=== PATIENT | male | born 1940 | race African-American/Black ===

== ENCOUNTER → 2016-12-03 | Day surgery (SDC) | payer OTHER ==
[~2016-12-03] MED LIST: FLUMAZENIL 0.5 MG/5 ML VIAL IV ONE; LACTATED RINGER'S 1,000 ML BAG IV ONE; LIDOCAINE 1%/EPINEPHrine 1:100,000 SOLN 20 ML VIAL ONE; MIDAZOLAM HCL 2 MG/2 ML VIAL ONE; PROPOFOL 200 MG/20 ML AMP IV ONE; ceFAZolin INJ 1,000 MG VIAL ONE
--- NOTE | 2016-12-03 15:41 | TN ---
cc: MEGAN ESCALANTE DATE OF SURGERY: December 03, 2016 PREOPERATIVE DIAGNOSIS Left carpal tunnel syndrome. POSTOPERATIVE DIAGNOSIS Left carpal tunnel syndrome. PROCEDURE Left carpal tunnel release. SURGEON Sunny Escalante MD ASSESSMENT Staff SPECIMENS' None. ESTIMATED BLOOD LOSS: Blood loss is none COMPLICATIONS None ANESTHESIA General, TIVA, local TOURNIQUET TIME 10 minutes at 250 mmHg condition stable PLAN Activity as per orders. PROCEDURE The patient was brought into the operating room and had satisfactory TIVA anesthesia by Dr. Navarro Department of Anesthesia. Left upper extremity was prepped and draped in usual sterile. 7 cc of 1% lidocaine with epinephrine used infiltrate the operative site. The extremity was exsanguinated by Vladimir wrap, tourniquet inflated to 250 mmHg. Midline incision made over the carpal canal between the thenar, hypothenar eminences dissected tissue. All bleeders coagulated with bipolar anticoagulation. A longitudinal incision made in the transverse carpal ligament. Identification of median nerve was made. The median nerve was found to have significant compression in the carpal canal. Release median nerve and distal forearm fascia and distally was performed without difficulty. Great care was made to identify and protect the recurrent motor branch. All bleeders were coagulated. The wound was closed in multiple layers using 3-0 Vicryl suture. Skin approximated with interrupted 2-0 nylon suture. Sterile dressings were applied. Tourniquet deflated. The wounds themselves were dressed. Sterile dressing was applied. The patient tolerated the procedure in stable and satisfactory condition. MD JAYDE New/alejo /1:45 PM /3:31 PM
== END | disposition home or self-care (01) ==
LOC: ESDC 12:09
PROVIDERS: ATTEND Orthopaedic Surgery Orthopaedic Surgery of the Spine
DX: G56.02 Carpal tunnel syndrome, left upper limb (principal)
CPT/HCPCS: 01810; 64721; J0690; J2250; J3010; J7120